=== PATIENT | male | born 1965 | race African-American/Black ===

== ENCOUNTER 2018-11-16 11:04 | Emergency (ER) | payer BC ==
[~2018-11-16] VITALS: Ht 182.9 cm; Wt 122.5 kg
[2018-11-16 12:28] LABS: BASO # 0.1 x10^3/uL (0.0-0.2); BASO % 1 % (0-3); EOS # 0.2 x10^3/uL (0.0-0.7); EOS % 2 % (0-3); HEMATOCRIT 46.7 % (39.0-53.0); HEMOGLOBIN 16.2 g/dL (13.0-17.5); LYMPH # 1.8 x10^3/uL (1.0-4.8); LYMPH % 19 % (24-48); MEAN CORPUSCULAR HEMOGLOBIN 31 pg (25-35); MEAN CORPUSCULAR HGB CONC 35 g/dL (31-37); MEAN CORPUSCULAR VOLUME 89 fL (79-100); MONO # 0.9 x10^3/uL (0.0-1.1); MONO % 10 % (0-9); NEUT # 6.5 x10^3/uL (1.8-7.7); NEUT % 70 % (31-73); PLATELET COUNT 316 x10^3/uL (140-400); RED BLOOD COUNT 5.27 x10^6/uL (4.30-5.70); RED CELL DISTRIBUTION WIDTH 13.3 % (11.5-14.5); WHITE BLOOD COUNT 9.4 x10^3/uL (4.0-11.0)
--- NOTE | 2018-11-16 12:29 | EKG ---
[address] [place] [address] Test Date: 2018-11-16 Test Time: 11:45:37 Pat Name: MATTHEW KAMARA Department: Room: Gender: M Flanger: : 1965 Requested By: SIRI LATIF Order Number: [id number] Reading MD: Measurements Intervals [place] Rate: 74 P: 34 MA: 158 QRS: -23 QRSD: 110 T: 17 QT: 380 QTc: 422 Interpretive Statements SINUS RHYTHM LEFTWARD AXIS OTHERWISE NORMAL ECG RI6.01 Unconfirmed report No previous ECG available for comparison
[2018-11-16 12:31] LABS: BILIRUBIN,URINE NEGATIVE (NEG); CLARITY,URINE CLEAR; COLOR,URINE YELLOW; NITRITE,URINE NEGATIVE (NEG); PROTEIN,URINE NEGATIVE (NEG-TRACE); UROBILINOGEN,URINE 0.2 mg/dL (0.2 mg/dL)
--- NOTE | 2018-11-16 12:32 | RAD ---
CHEST AP ONLY Clinical Indication: Dizziness Comparison: None. Findings: Cardiac size upper limits of normal. Widening of the upper mediastinum may be due to ectatic vasculature, adenopathy, or mass. Appearance may also partially be due to technique. Lungs are clear. There is no pneumothorax. No pleural effusion is appreciated. No acute bone abnormality. IMPRESSION: Prominence of the upper mediastinum. Suggest two-view chest for further evaluation. Electronically signed by: Rachid Hernandez MD (11/16/2018 12:29 PM) [id number]
[2018-11-16 12:36] LABS: CALCIUM 9.2 mg/dL (8.5-10.1); CREATININE 1.2 mg/dL (0.7-1.3); GFR 76.6; POTASSIUM 4.2 mmol/L (3.5-5.1)
[2018-11-16 12:41] LABS: ALBUMIN 3.7 g/dL (3.4-5.0); ALBUMIN/GLOBULIN RATIO 0.9 (1.0-1.7); TOTAL BILIRUBIN 0.5 mg/dL (0.2-1.0); TOTAL PROTEIN 7.6 g/dL (6.4-8.2)
--- NOTE | 2018-11-16 12:42 | PHYS DOC ---
Past Medical History Past Medical History: High Cholesterol, Hypertension Additional Past Surgical Histo: ruptured achilles tendons Additional Information: cigars 1-2x week Alcohol Use: Rarely Drug Use: Marijuana Adult General Chief Complaint Chief Complaint: DIZZY/LIGHT HEADED HPI HPI Patient is a 52 year old male presents with sweats, fatigue, dry cough �2 days with increased fatigue this morning. Patient states he woke up at 6:30 this morning as per his normal routine, felt dizzy, diaphoretic and ate some candy and went back to bed. Patient states he next remembers waking up on top of his bed and slumped over at approximately 10:30 a.m. He denies losing bowel or bladder function or biting his lips. Patient did report feeling confused upon awaking and ate a candy bar on the way to the ED. States he has had similar episodes in the past which she was hypoglycemic treatment due to his episode yesterday to the same. Patient is not a diabetic is not dieting. He is change of appetite, denies chest pain palpitations, shortness of breath, abdominal pain. Denies headache, change in vision, neck pain, stiffness extremity weakness or loss of sensation. Denies urgency or difficulty starting or stopping urination. No other acute symptoms or complaints. [] Review of Systems Review of Systems Review symptoms as per history of present illness. All other review symptoms are negative. All other systems were reviewed and found to be within normal limits, except as documented in this note. Allergies Allergies Allergies Coded Allergies Type Severity Reaction Last Updated Verified No Known Drug Allergies 11/16/18 No Physical Exam Physical Exam Constitutional: Well developed, well nourished, no acute distress, non-toxic appearance. [] HENT: Normocephalic, atraumatic, bilateral external ears normal, oropharynx moist, no oral exudates, nose normal. [] Eyes: PERRLA, EOMI, conjunctiva normal, no discharge. [] Neck: Normal range of motion, no tenderness, supple, no stridor. [] Cardiovascular:Heart rate regular rhythm, no murmur [] Lungs & Thorax: Bilateral breath sounds clear to auscultation [] Abdomen: Bowel sounds normal, soft, no tenderness. [] Skin: Warm, dry, no erythema, no rash. [] Back: No tenderness. [] Extremities: No tenderness, no edema. [] Neurologic: Alert and oriented X 3, CRAnial nerves II through XII grossly intact, normal motor function, normal sensory function, no focal deficits noted. [] Psychologic: Affect normal, judgement normal, mood normal. [] Current Patient Data Vital Signs Vital Signs Date Time Temp Pulse Resp B/P (MAP) Pulse Ox O2 Delivery O2 Flow Rate FiO2 11/16/18 11:32 98.0 68 14 137/87 (104) 100 Room Air 98.0 Lab Values Laboratory Tests Test 11/16/18 11:32 11/16/18 12:12 11/16/18 12:15 11/16/18 13:11 Urine Collection Type Void Urine Color Yellow Urine Clarity Clear Urine pH 5.0 Urine Specific [place] 1.025 Urine Protein Negative mg/dL (NEG-TRACE) Urine Glucose (UA) Negative mg/dL (NEG) Urine Ketones (Stick) Negative mg/dL (NEG) Urine Blood Negative (NEG) Urine Nitrite Negative (NEG) Urine Bilirubin Negative (NEG) Urine Urobilinogen Dipstick 0.2 mg/dL (0.2 mg/dL) Urine Leukocyte Esterase Negative (NEG) Urine RBC Rare /HPF (0-2) Urine WBC 1-4 /HPF (0-4) Urine Squamous Epithelial Cells Few /LPF Urine Bacteria Few /HPF (0-FEW) Urine Mucus Slight /LPF Glucose (Fingerstick) 98 mg/dL (70-99) 107 mg/dL (70-99) H White Blood Count 9.4 x10^3/uL (4.0-11.0) Red Blood Count 5.27 x10^6/uL (4.30-5.70) Hemoglobin 16.2 g/dL (13.0-17.5) Hematocrit 46.7 % (39.0-53.0) Mean Corpuscular Volume 89 fL (79-100) Mean Corpuscular Hemoglobin 31 pg (25-35) Mean Corpuscular Hemoglobin Concent 35 g/dL (31-37) Red Cell Distribution Width 13.3 % (11.5-14.5) Platelet Count 316 x10^3/uL (140-400) Neutrophils (%) (Auto) 70 % (31-73) Lymphocytes (%) (Auto) 19 % (24-48) L Monocytes (%) (Auto) 10 % (0-9) H Eosinophils (%) (Auto) 2 % (0-3) Basophils (%) (Auto) 1 % (0-3) Neutrophils # (Auto) 6.5 x10^3/uL (1.8-7.7) Lymphocytes # (Auto) 1.8 x10^3/uL (1.0-4.8) Monocytes # (Auto) 0.9 x10^3/uL (0.0-1.1) Eosinophils # (Auto) 0.2 x10^3/uL (0.0-0.7) Basophils # (Auto) 0.1 x10^3/uL (0.0-0.2) Sodium Level 141 mmol/L (136-145) Potassium Level 4.2 mmol/L (3.5-5.1) Chloride Level 101 mmol/L (98-107) Carbon Dioxide Level 26 mmol/L (21-32) Anion Gap 14 (6-14) Blood Urea Nitrogen 15 mg/dL (8-26) Creatinine 1.2 mg/dL (0.7-1.3) Estimated GFR (Cockcroft-Gault) 76.6 BUN/Creatinine Ratio 13 (6-20) Glucose Level 101 mg/dL (70-99) H Calcium Level 9.2 mg/dL (8.5-10.1) Total Bilirubin 0.5 mg/dL (0.2-1.0) Aspartate Amino Transferase (AST) 17 U/L (15-37) Alanine Aminotransferase (ALT) 30 U/L (16-63) Alkaline Phosphatase 82 U/L (46-116) Troponin I Quantitative < 0.017 ng/mL (0.000-0.055) Total Protein 7.6 g/dL (6.4-8.2) Albumin 3.7 g/dL (3.4-5.0) Albumin/Globulin Ratio 0.9 (1.0-1.7) L Thyroid Stimulating Hormone (TSH) 1.593 uIU/mL (0.358-3.74) Laboratory Tests 11/16/18 12:15 Laboratory Tests 11/16/18 12:15 EKG EKG [EKG: Sinus rhythm, rate 73, no acute ST-T wave changes] Radiology/Procedures Radiology/Procedures [] Course & Med Decision Making Course & Med Decision Making Pertinent Labs and Imaging studies reviewed. (See chart for details) [Symptoms fully resolved in the ED after eating a chocolate bar prior to ED arrival. Patient states he typically eats one meal a day and ate high-protein low-carb meal prior to bedtime last evening. Patient states that quite often he skips breakfast and in the morning he feels dizzy lightheaded and diaphoretic. Suspect patient's symptoms related to hypoglycemia. Patient is a meal tray is alert oriented. Does not have any focal neurologic symptoms or street to suggest seizure. Recommendations are frequent meals and snacks and monitoring of blood sugars long with PCP follow-up. Return precautions reviewed.] Dragon Disclaimer Dragon Disclaimer This electronic medical record was generated, in whole or in part, using a voice recognition dictation system. Departure Departure Impression: Primary Impression: Hypoglycemia Disposition: 01 HOME, SELF-CARE Condition: IMPROVED Referrals: UNKNOWN PCP NAME (PCP) Patient Instructions: Hypoglycemia (Low Blood Sugar) Additional Instructions: Please eat frequent meals and snacks and check blood sugar at home symptoms return. Follow-up with your PCP for reevaluation. Return to the ED if new or worsening symptoms.. SIRI LATIF DO Nov 16, 2018 12:42
[2018-11-16 12:44] LABS: BACTERIA,URINE FEW /HPF (0-FEW); RBC,URINE RARE /HPF (0-2); SQUAMOUS EPITHELIAL CELL,UR FEW /LPF
[2018-11-16 15:08] VITALS: BP 130/81
== END 2018-11-16 15:15 | disposition home or self-care (01) ==
LOC: ER 11:04
DX: E16.2 Hypoglycemia, unspecified (principal); R05 Cough; R53.83 Other fatigue; R42 Dizziness and giddiness; R61 Generalized hyperhidrosis; R41.0 Disorientation, unspecified; E78.00 Pure hypercholesterolemia, unspecified; I10 Essential (primary) hypertension; F17.210 Nicotine dependence, cigarettes, uncomplicated
CPT/HCPCS: 36415; 71045; 71046; 80053; 81001; 82962; 84443; 84484; 85025; 93005; 99285